=== PATIENT | female | born 1945 | race Caucasian/White ===

== ENCOUNTER 2017-02-14 11:13 | Inpatient (IN) | payer MEDICARE, OTHER ==
--- NOTE | ~2017-02-14 | DS ---
Discharge Summary [facility] [address] [place]. [address] NAME: MAGDA SARKAR : 43 STATUS : DIS IN PAT#: [id number] AGE: 71 ADM/REG DATE : 02/14/17 MR#: [id number] REPORT SERV DATE: 02/18/17 DICTATED BY: AMIE COLEMAN DATE: 02/17/17 REPORT STATUS : Draft TRANSCRIBED BY: MODL DATE: 02/17/17 ADMISSION DATE: 02/14/2017 DISCHARGE DATE: 02/17/2017 HOSPITAL COURSE: This is a 71-year-old female with known history of hypertension, PAD, COPD, oxygen at nighttime, history of DVT of left lower extremity in the past for which she is on Xarelto, known history of small cell lung cancer, received radiation chemo, saw Dr. Paul Kaiser in the past. She came in with significant pain, swelling, redness to the left leg for which she had a left lower extremity Doppler that was negative for any DVT, seen to have significant cellulitis placed on Ancef and Vanc. She has had improvement in erythema and clinically feels better. Procalcitonin has gone down 0.39. MRSA nares was MRSA negative, SA positive, so therefore D/C vanc, can go home if PT feels this is appropriate. Blood cultures, no growth to date. The patient is amenable for discharge. She will receive 14 additional days of oral Omnicef given prolonged treatment duration given her lymphedema for which she will need compression stockings thereafter, and likely treatment of her onychomycosis likely will need systemic and terbinafine, I will defer to primary care doctor. DISCHARGE MEDICATIONS: 1. Lipitor 20 mg p.o. q.h.s. 2. Omnicef 300 mg p.o. b.i.d. for 14 days. 3. Prozac 20 mg p.o. b.i.d. 4. Lisinopril 20 mg p.o. daily. 5. Maxzide 25 mg p.o. daily. 6. Xarelto 20 mg p.o. q.h.s. 7. Prilosec 20 mg p.o. daily. 8. Advair Diskus. 9. Lortab 5/325 mg p.o. q.6 p.r.n. 10.Spiriva home dose. 11.Flonase nasal spray. CONSULTS: Medical Oncology, Dr. Barnhart. FOLLOWUP: Follow up with Dr. Wilkerson. It was noted that the patient had SBRT/chemo/ , and the patient is currently in remission based on CT three weeks prior to coming in for lung cancer. All questions were answered. It took well over 30 minutes to do. DISCHARGE DIAGNOSES: 1. Sepsis. 2. Left lower extremity cellulitis. 3. History deep venous thrombosis. Discharge Summary [address] [address] NAME: MAGDA SARKAR : 43 STATUS : DIS IN [facility]#: [id number] AGE: 71 ADM/REG DATE : 02/14/17 MR#: [id number] REPORT SERV DATE: 02/18/17 DICTATED BY: AMIE COLEMAN DATE: 02/17/17 REPORT STATUS : Draft TRANSCRIBED BY: MODL DATE: 02/17/17 4. Chronic obstructive pulmonary disease. 5. Hyperlipidemia. 6. Depression. 7. History of lung cancer, in remission. DICTATED BY: Amie Coleman DO WST/MODL Amie Coleman DO / [id number] CC: DO Jose Trevino M.D.
--- NOTE | ~2017-02-14 | HP ---
History And Physical [facility] [place]. [address] NAME: MAGDA SARKAR : 43 STATUS : ADM IN [facility]#: [id number] AGE: 71 ADM/REG DATE : 02/14/17 MR#: [id number] REPORT SERV DATE: 02/14/17 DICTATED BY: NORBERTO NORTON DATE: 02/14/17 REPORT STATUS : Draft TRANSCRIBED BY: MODL DATE: 02/14/17 DATE OF ADMISSION: 02/14/2017 CHIEF COMPLAINT: Pain, swelling, and redness of the left leg. The patient states that her pain and redness began about three days ago. She said that it started off as a dull ache and some swelling in her left lower extremity and has red spot on the left leg that started spreading, and in the last three days, it has become really bad and the redness and the swelling has spread almost up to her knees. So, she decided to come into the ER. The right leg itself is fine according to the patient. HISTORY OF PRESENTING COMPLAINT: The patient states that her left leg has always been the problem leg and she has had a few instances of cellulitis in the past and also DVT of the left lower extremity in the past. REVIEW OF SYSTEMS: Negative for any headaches, blurry vision, chest pain, shortness of breath above baseline, nausea, vomiting, abdominal pain, diarrhea, dysuria, hematuria, and pain anywhere else. PAST MEDICAL HISTORY: Significant for hypertension, peripheral vascular disease, COPD, requiring O2 use only at nighttime, history of recurrent lung cancer that recurred in 12/2015. The patient at this time in 12/2015 was diagnosed with small-cell lung cancer for which she has received radiation and chemotherapy. Her lung specialist is Dr. Paul Kaiser. Her nail maker is Dr. Mejia. The patient also has a history of DVT in the left lower extremity in the past and for that she is on Xarelto even now. The patient also has a diagnosis of osteoarthritis and chronic hyponatremia in the past. FAMILY HISTORY: Positive for heart problems in the family, but no history of lung cancer. The patient used to be a heavy smoker but quit smoking about a year ago when she was diagnosed with recurrent lung cancer. The first lung cancer was when she was age 44 and at that time was an adenocarcinoma. At this time, in 12/2015, it was small cell lung cancer. The cancer has always been in her left lung the patient says. SOCIAL HISTORY: The patient does not drink any alcohol, denies any illicit drug use. The patient has her significant other who has been with her for almost 20 years with her and he is in the room with her. ALLERGIES: FIRST OF ALL, THE PATIENT HAS NO KNOWN DRUG ALLERGIES. MEDICATIONS AT HOME: She uses on a regular basis include the following: She takes Maxzide 37.5/25 one tablet once a day. Advair Diskus 250/50 one puff once a day. Prozac 20 mg p.o. b.i.d. Keflex 500 mg p.o. q.6 h., started on 02/12/2017 that was yesterday, and apparently History And Physical [address] [address] NAME: MAGDA SARKAR : 43 STATUS : ADM IN [facility]#: [id number] AGE: 71 ADM/REG DATE : 02/14/17 MR#: [id number] REPORT SERV DATE: 02/14/17 DICTATED BY: NORBERTO NORTON DATE: 02/14/17 REPORT STATUS : Draft TRANSCRIBED BY: JORGE DATE: 02/14/17 the patient did not respond to this. The patient also takes [place] 5/325 every four hours p.r.n. for pain. Prilosec 20 mg once a day. Spiriva Respimat once a day as prescribed. Lisinopril 20 mg once a day. Flonase nasal spray as prescribed. Lipitor 20 mg once a day and Xarelto 20 mg at bedtime. PHYSICAL EXAMINATION: GENERAL: The patient is alert, oriented, and is able to give her history herself. VITAL SIGNS: Her vital signs show that her blood pressure is 140/78, temperature is 97.5, pulse is 72 per minute, respirations 20 per minute. The patient is afebrile. HEENT: Unremarkable. NECK: There is no JVD. No thyromegaly. No lymphadenopathy. No facial droop. CARDIOVASCULAR SYSTEM: S1, S2 appreciated. Sinus rhythm. No murmurs, rubs, or gallops noted. RESPIRATORY SYSTEM: Clear lungs. No rales or rhonchi noted. ABDOMEN: Soft, nontender, nondistended. Bowel sounds are appreciated. I could not appreciate any hepatosplenomegaly or abdominal masses. EXTREMITIES: Lower extremities, right lower extremity has no edema. Pedal pulses are diminished in both lower extremities, DP/PT both. However, the left leg is swollen, red, and tender. The redness in the left leg extends all the way from the top of the foot to almost up until the left knee. There is also two small areas around the ankle that have blisters and the blisters have bust and discharging purulent fluid. The patient is able to move both her lower extremities. NEUROLOGICAL: No deficits at this time. MUSCULOSKELETAL: Positive for osteoarthritis. PSYCHIATRIC: Positive for depression for which she takes Prozac. LABORATORY DATA: Labs that I have on this patient include WBC count of 9.6, hemoglobin 10.4, hematocrit 31.2. Normal platelets. Lactate level is normal at 1.3. Procalcitonin level however is elevated 2.5. Sodium is 134, potassium is 3, BUN 20, creatinine 1. The patient had a left lower extremity venous Doppler that came back negative for any DVT at this time of the left lower extremity. ASSESSMENT: 1. A 71-year-old patient being admitted with straightforward left leg cellulitis, which appears to be [id number] in nature. For this, we will go ahead, and before starting antibiotics, we will take wound cultures from the blister area in the left ankle. 2. We will start her on IV fluids namely normal saline and also IV antibiotics. At this time, we will start her on Rocephin to cover gram negatives and vancomycin to cover Staph. I will hold off on prescribing her anything stronger for this until I get the cultures back. 3. History of deep vein thrombosis in the left lower extremity. For this, we will continue her home dose of Xarelto. 4. Hypertension. We will continue her home medications. 5. Hyperlipidemia. 6. History of lung cancer, diagnosed about a year ago. This is recurrent lung cancer. History And Physical [address] [address] NAME: MAGDA SARKAR : 43 STATUS : ADM IN [facility]#: [id number] AGE: 71 ADM/REG DATE : 02/14/17 MR#: [id number] REPORT SERV DATE: 02/14/17 DICTATED BY: NORBERTO NORTON DATE: 02/14/17 REPORT STATUS : Draft TRANSCRIBED BY: MODL DATE: 02/14/17 The first one was adenocarcinoma and the most recent one is small cell lung cancer for which the patient has received chemotherapy and radiation therapy. So the patient definitely has some immune suppression. So we will carefully watch her left leg cellulitis and carefully watch the antibiotics that we are going to choose on this patient. 7. Hypokalemia, will be corrected. 8. We will essentially resume all her home medications and treat her for symptomatic treatment also with pain control. We will follow. LJ/JORGE Norberto Norton M.D. / [id number] CC: Tanya Stoll M.D.
[2017-02-14 10:45] LABS: BASOPHILS 0.2 %; BASOPHILS ABSOLUTE 0.02 10/3/uL (0.0-0.16); EOSINOPHILS 0.5 %; EOSINOPHILS ABSOLUTE 0.05 10/3/uL (0.0-0.53); ER CBC TAT 0 Hrs 05 Mins; HEMATOCRIT 31.2 % (36.0-48.0); HEMOGLOBIN 10.4 g/dL (12.0-16.0); IMMATURE GRANULOCYTES 0.3 %; IMMATURE GRANULOCYTES ABSOLUTE 0.03 10/3/uL (0.0-0.11); LYMPHOCYTES 11.5 %; MANUAL DIFF NO %; MEAN CORPUS HGB CONC 33.3 g/dL (32.0-36.0); MEAN CORPUSCULAR HEMOGLOB 29.9 pg (26.0-34.0); MEAN CORPUSCULAR VOLUME 89.7 fL (80-100); MEAN PLATELET VOLUME 9.9 fL (9.2-13.0); MONOCYTES ABSOLUTE 0.67 10/3/uL (0.21-1.20); NEUTROPHILS 80.5 %; PLATELET COUNT 194 10/3/uL (150-400); RBC DISTRIBUTION WIDTH 13.7 % (12.0-16.0); RED CELL COUNT 3.48 10/6/uL (4.0-5.6); WHITE BLOOD CELLS 9.6 10/3/uL (4.5-10.5)
[2017-02-14 11:01] LABS: BUN (BLOOD UREA NITROGEN) 20 MG/DL (6-23); CALCIUM, SERUM 8.8 MG/DL (8.5-10.4); CHLORIDE, SERUM 99 MMOL/L (96-112); CO2 (CARBON DIOXIDE) 27 MMOL/L (24-34); GFR AFRICAN AMERICAN 65 ML/MIN (>=60); GFR NON AFRICAN AMERICAN 56 ML/MIN (>=60); GLUCOSE, SERUM 97 MG/DL (60-99); SODIUM, SERUM 134 MMOL/L (135-148)
[2017-02-14 11:05] LABS: LACTATE 1.3 MMOL/L (0.3-2.4)
[~2017-02-14 11:13] MED LIST: ACET500CAP PO; ADVAIR250 INH; ATRONASAL6 NAS; COMBIVENT RESPIM4 GM INH; FLONASE NAS; LEVAQUIN750 MG PO; LIPITOR20 PO; LISINOPRIL40 MG PO; MAX25 PO; MOBIC15 MG PO; OCEAN NAS; P10 PO; PRIN20 PO; PRIN5 PO; PROVHFA INH; PROZAC PO; SPIRIVA INH; TRIAMCINOLON0.51 TOP; TUDORZA PRESS400 MCG INH; ULTRAM50 PO; XARELTO20 MG PO
[2017-02-14 11:40] LABS: PROCALCITONIN 2.58 ng/mL (<0.5)
[2017-02-14] MEDS ORDERED: ADVAIR250 INH (12:01)
[2017-02-14] MEDS ORDERED: PROZAC PO (12:01)
[2017-02-14] MEDS ORDERED: MAX25 PO (12:01)
[2017-02-14] MEDS ORDERED: NORCO1 TA1 PO (12:02)
[2017-02-14] MEDS ORDERED: K500 PO (12:02)
[2017-02-14] MEDS ORDERED: TRIAMCINOLONE 0.5% TOP (12:03)
[2017-02-14] MEDS ORDERED: SPIRIVA RESPIMAT INH (12:04)
[2017-02-14] MEDS ORDERED: FLONASE NAS (12:04)
[2017-02-14] MEDS ORDERED: PRIN20 PO (12:04)
[2017-02-14] MEDS ORDERED: PRILO PO (12:04)
[2017-02-14] MEDS ORDERED: XARELTO20 MG PO (12:05)
[2017-02-14] MEDS ORDERED: LIPITOR20 PO (12:05)
[2017-02-15 06:58] LABS: BASOPHILS 0.3 %; BASOPHILS ABSOLUTE 0.02 10/3/uL (0.0-0.16); EOSINOPHILS 1.3 %; HEMATOCRIT 32.9 % (36.0-48.0); HEMOGLOBIN 10.8 g/dL (12.0-16.0); IMMATURE GRANULOCYTES 0.4 %; IMMATURE GRANULOCYTES ABSOLUTE 0.03 10/3/uL (0.0-0.11); LYMPHOCYTES 12.1 %; LYMPHOCYTES ABSOLUTE 0.95 10/3/uL (0.67-4.30); MANUAL DIFF NO %; MEAN CORPUS HGB CONC 32.8 g/dL (32.0-36.0); MEAN CORPUSCULAR VOLUME 91.4 fL (80-100); MEAN PLATELET VOLUME 10.1 fL (9.2-13.0); MONOCYTES 6.6 %; MONOCYTES ABSOLUTE 0.52 10/3/uL (0.21-1.20); NEUTROPHILS 79.3 %; PLATELET COUNT 218 10/3/uL (150-400); RBC DISTRIBUTION WIDTH 13.9 % (12.0-16.0); WHITE BLOOD CELLS 7.8 10/3/uL (4.5-10.5)
[2017-02-15 07:06] LABS: BUN (BLOOD UREA NITROGEN) 14 MG/DL (6-23); CALCIUM, SERUM 8.8 MG/DL (8.5-10.4); CHLORIDE, SERUM 107 MMOL/L (96-112); CO2 (CARBON DIOXIDE) 26 MMOL/L (24-34); CREATININE 0.71 MG/DL (0.55-1.02); GFR AFRICAN AMERICAN 99 ML/MIN (>=60); GFR NON AFRICAN AMERICAN 85 ML/MIN (>=60); GLUCOSE, SERUM 98 MG/DL (60-99); POTASSIUM, SERUM 3.6 MMOL/L (3.5-5.3); SODIUM, SERUM 138 MMOL/L (135-148)
[2017-02-16 06:59] LABS: BASOPHILS 0.3 %; EOSINOPHILS 1.1 %; EOSINOPHILS ABSOLUTE 0.1 10/3/uL (0.0-0.5); HEMATOCRIT 32.9 % (36.0-48.0); HEMOGLOBIN 10.9 g/dL (12.0-16.0); LYMPHOCYTES 17.1 %; LYMPHOCYTES ABSOLUTE 1.5 10/3/uL (0.7-4.3); MEAN CORPUS HGB CONC 33.2 g/dL (32.0-36.0); MEAN CORPUSCULAR HEMOGLOB 29.9 pg (26.0-34.0); MEAN CORPUSCULAR VOLUME 90.2 fL (80-100); MEAN PLATELET VOLUME 8.3 fL (6.8-10.8); MONOCYTES 8.2 %; MONOCYTES ABSOLUTE 0.7 10/3/uL (0.2-1.2); NEUTROPHILS 73.3 %; NEUTROPHILS ABSOLUTE 6.3 10/3/uL (2.0-8.4); PLATELET COUNT 233 10/3/uL (150-400); RBC DISTRIBUTION WIDTH 14.1 % (12.0-16.0); RED CELL COUNT 3.64 10/6/uL (4.0-5.6); WHITE BLOOD CELLS 8.6 10/3/uL (4.5-10.5)
[2017-02-16 07:00] LABS: MANUAL DIFF NO %
[2017-02-17 06:19] LABS: BASOPHILS 0.2 %; BASOPHILS ABSOLUTE 0.02 10/3/uL (0.0-0.16); EOSINOPHILS 1.5 %; EOSINOPHILS ABSOLUTE 0.12 10/3/uL (0.0-0.53); HEMATOCRIT 30.7 % (36.0-48.0); HEMOGLOBIN 10.1 g/dL (12.0-16.0); IMMATURE GRANULOCYTES 1.5 %; IMMATURE GRANULOCYTES ABSOLUTE 0.12 10/3/uL (0.0-0.11); LYMPHOCYTES 19.1 %; LYMPHOCYTES ABSOLUTE 1.54 10/3/uL (0.67-4.30); MANUAL DIFF NO %; MEAN CORPUS HGB CONC 32.9 g/dL (32.0-36.0); MEAN CORPUSCULAR HEMOGLOB 29.7 pg (26.0-34.0); MEAN CORPUSCULAR VOLUME 90.3 fL (80-100); MEAN PLATELET VOLUME 9.5 fL (9.2-13.0); MONOCYTES 7.3 %; MONOCYTES ABSOLUTE 0.59 10/3/uL (0.21-1.20); NEUTROPHILS 70.4 %; NEUTROPHILS ABSOLUTE 5.66 10/3/uL (2.02-8.40); PLATELET COUNT 261 10/3/uL (150-400); RBC DISTRIBUTION WIDTH 13.7 % (12.0-16.0); WHITE BLOOD CELLS 8.1 10/3/uL (4.5-10.5)
[2017-02-17 06:27] LABS: CALCIUM, SERUM 8.9 MG/DL (8.5-10.4); CHLORIDE, SERUM 100 MMOL/L (96-112); CO2 (CARBON DIOXIDE) 27 MMOL/L (24-34); CREATININE 0.77 MG/DL (0.55-1.02); GFR AFRICAN AMERICAN 89 ML/MIN (>=60); GFR NON AFRICAN AMERICAN 77 ML/MIN (>=60); GLUCOSE, SERUM 96 MG/DL (60-99); POTASSIUM, SERUM 3.8 MMOL/L (3.5-5.3); SODIUM, SERUM 135 MMOL/L (135-148)
[2017-02-17 06:29] LABS: BUN (BLOOD UREA NITROGEN) 9 MG/DL (6-23); PHOSPHORUS, SERUM 3.6 MG/DL (2.5-4.5)
[2017-02-17 07:38] LABS: PROCALCITONIN 0.39 ng/mL (<0.5)
[2017-02-17] MEDS ORDERED: OMNICEF300 PO (14:39)
[2017-02-17] MEDS ORDERED: NORCO1 TA1 PO (14:40)
== END 2017-02-17 18:00 | disposition home health service (06) | DRG 603 ==
LOC: ER 11:13 → 5SO 12:23
PROVIDERS: Emergency Medicine; Internal Medicine
DX: L03.116 Cellulitis of left lower limb (principal); E87.1 Hypo-osmolality and hyponatremia; J44.9 Chronic obstructive pulmonary disease, unspecified; C34.12 Malignant neoplasm of upper lobe, left bronchus or lung; I73.9 Peripheral vascular disease, unspecified; I10 Essential (primary) hypertension; F32.9 Major depressive disorder, single episode, unspecified; E87.6 Hypokalemia; E78.5 Hyperlipidemia, unspecified; Z86.718 Personal history of other venous thrombosis and embolism; Z85.118 Personal history of other malignant neoplasm of bronchus and lung; Z79.899 Other long term (current) drug therapy; Z79.01 Long term (current) use of anticoagulants; Z92.21 Personal history of antineoplastic chemotherapy
CPT/HCPCS: 80048; 83605; 83735; 84100; 84145; 85025; 87040; 87070; 87205; 87641; 93005; 93971; 94640; 96374; 97161-GP; 99284; A9270-GY; G8978-CJ-GP; G8979-CJ-GP; G8980-CJ-GP; J0690; J3370